=== PATIENT | male | born 1980 | race African-American/Black ===

== ENCOUNTER 2017-02-10 13:53 | Emergency (ER) | payer SELFPAY ==
[~2017-02-10] VITALS: Ht 177.8 cm; Wt 77.0 kg
[2017-02-10] MEDS ORDERED: ACETAMINOPHEN 325MG TABLET PO ONE (17:15)
[2017-02-10] MEDS ORDERED: BACITRACIN ZINC OINT UDPKT TOP ONE (19:30)
[2017-02-10 23:14] VITALS: BP 129/85
== END 2017-02-10 23:15 | disposition home or self-care (01) ==
LOC: ER 14:04
DX: S62.334A Displaced fracture of neck of fourth metacarpal bone, right hand, initial encounter for closed fracture (principal); S50.811A Abrasion of right forearm, initial encounter; S20.311A Abrasion of right front wall of thorax, initial encounter; S30.811A Abrasion of abdominal wall, initial encounter; F17.200 Nicotine dependence, unspecified, uncomplicated; X58.XXXA Exposure to other specified factors, initial encounter; Y93.89 Activity, other specified; Y92.89 Other specified places as the place of occurrence of the external cause; Y99.8 Other external cause status
CPT/HCPCS: 29515; 71010; 73060; 73080; 73620; 74000; 99284